=== PATIENT | male | born 1950 | race Caucasian/White ===

== ENCOUNTER 2019-08-31 06:24 | Emergency (ER) | payer MEDICARE, OTHER ==
[2019-11-03] MEDS ORDERED: AMIO200T6 PO (15:46)
== END 2019-08-31 11:34 | disposition home or self-care (01) ==
LOC: EDH 06:24
DX: S00.93XA Contusion of unspecified part of head, initial encounter (principal); I10 Essential (primary) hypertension; I48.91 Unspecified atrial fibrillation; W06.XXXA Fall from bed, initial encounter; Y93.89 Activity, other specified; Y92.89 Other specified places as the place of occurrence of the external cause; Y99.8 Other external cause status
CPT/HCPCS: 70450; 72125

== ENCOUNTER 2019-11-03 02:00 | Inpatient (IN) | payer MEDICARE ==
[~2019-11-03] VITALS: Ht 170.2 cm; Wt 67.5 kg
[2019-11-03] MEDS ORDERED: METOCLOPRAMIDE 10 MG/2 ML VIAL ONE (02:12)
[2019-11-03] MEDS ORDERED: ONDANSETRON HCL 4 MG/2 ML VIAL ONE (02:12)
[2019-11-03] MEDS ORDERED: SODIUM CHLORIDE 0.9% 1000ML 1,000 ML IV ONE (02:13)
[2019-11-03 02:32] LABS: BASOPHILS % (AUTO) 0.3 % (0.0-5.0); HEMATOCRIT 31.5 % (42-54); LYMPHOCYTES % (AUTO) 1.9 % (21.0-51.0); MEAN CORPUSCULAR HEMOGLOBIN 19.2 pg (27.0-33.0); MEAN CORPUSCULAR HGB CONC 32.1 g/dL (32.0-36.0); MONOCYTES % (AUTO) 14.6 % (3.0-13.0); NEUTROPHILS % (AUTO) 82.6 % (40.0-77.0); NUCLEATED RED BLOOD CELLS 0.3 % (0.0-0.19); PLATELET COUNT (AUTO) 443 K/uL (130-400); RED BLOOD CELL COUNT(AUTO) 5.25 MIL/uL (4.50-6.20); RED CELL DISTRIBUTION WIDTH 18.7 % (11.0-15.5); WHITE BLOOD COUNT (AUTO) 22.8 K/uL (4.8-10.8)
[2019-11-03 02:50] LABS: CREATININE 1.4 mg/dL (0.5-1.5); POTASSIUM 4.2 mmol/L (3.5-5.1)
[2019-11-03 02:52] LABS: INR 0.99 (0.85-1.15); PARTIAL THROMBOPLASTIN TIME 40.6 SEC (26.3-35.5); PROTHROMBIN TIME 10.7 SEC (9.6-11.6)
[2019-11-03 02:54] LABS: ALBUMIN 3.4 g/dL (3.5-5.0); BILIRUBIN,TOTAL 0.7 mg/dL (0.2-1.0); TOTAL PROTEIN, SERUM 7.8 g/dL (6.0-8.3)
[2019-11-03 02:58] LABS: BAND NEUTROPHILS % (MANUAL) 9 % (0-2); LYMPHOCYTES % (MANUAL) 4 % (22-44); MAN.DIFF COMMENT-IMPRESSION MANUAL DIFFERENTIAL; MONOCYTES % (MANUAL) 13 % (2-9); PLATELET MORPHOLOGY COMMENT ADEQUATE; SEGMENTED NEUTROPHILS % 74 % (40-70)
[2019-11-03 03:01] LABS: B-TYPE NATRIURETIC PEPTIDE 241 pg/mL (0-100)
[2019-11-03] MEDS ORDERED: IOHEXOL 350 MG/ML 100ML INFUS..BTL IV ONE (04:16)
[2019-11-03] MEDS ORDERED: IOHEXOL-350 75 ML VIAL IV ONE (04:17)
[2019-11-03 05:52] LABS: APPEARANCE,URINE Clear (CLEAR); BILIRUBIN,URINE Negative (NEGATIVE); COLOR,URINE Dark Yellow (YELLOW); GLUCOSE, URINE (UA) Negative (NEGATIVE); KETONES,URINE Negative (NEGATIVE); LEUKOCYTE ESTERASE ,URINE Trace (NEGATIVE); NITRATE,URINE Negative (NEGATIVE); OCCULT BLOOD,URINE Trace (NEGATIVE); PH,URINE 5.5 (5.0-8.0); PROTEIN,URINE POS 1+ mg/dL (NEGATIVE)
[2019-11-03 05:59] LABS: BACTERIA,URINE Rare /HPF (None Seen); MUCUS,URINE Few LPF (None Seen); RBC,URINE 0-1 /HPF (0-1); SQUAMOUS EPITHELIAL CELL,UR Few /HPF (0-2)
[2019-11-03] MEDS ORDERED: ZOSYN 3.375GM+NS 50ML 50 ML IV ONE (06:16)
[2019-11-03] MEDS ORDERED: ACETAMINOPHEN 325 MG TAB PO PRN ×2 (07:15)
[2019-11-03] MEDS ORDERED: SODIUM CHLORIDE 0.9% 1000ML 1,000 ML IV SCH (07:15)
[2019-11-03] MEDS: ENOXAPARIN SODIUM 30 MG/0.3 ML SQ SCH (09:00)
[2019-11-03] MEDS ORDERED: ENOXAPARIN SODIUM 30 MG/0.3 ML SQ ONE (09:51)
[2019-11-03 11:30] VITALS: BP 110/50
--- NOTE | 2019-11-03 13:40 | NUR ---
CM NOTE/IA UNABLE TO MEET IN ROOM WITH PATIENT, NEXT OF KIN CALLED, BERNADETTE RAYA. PER SIBLING, PATIENT IS RESIDENT AT [facility], DEPENDENT WITH ADLS, TOTALLY BLIND, INCONTINENT, WHEELCHAIR BOUND, WPW SYNDROME, PARTIALLY PARALYZED, HAS USE OF WC, AND [facility] IN [place]. PER SIBLING, OK TO RETURN TO [place] IF HE CAN, PENDING MD RECOMMENDATIONS. PER SIBLING, HE HAS INITIATED BENEFITS CLAIM FOR [facility]P WITH [facility], BUT PROCESS PENDING. CM TO FOLLOW UP. Addendum: 11/03/19 at 1745 by ANDRES WHEATLEY RN CM Amended: Links added.
[2019-11-03] MEDS ORDERED: AMIO200T5 PO (15:46)
[2019-11-03] MEDS ORDERED: LORA-705 PO (15:52)
[2019-11-03] MEDS ORDERED: LEVO75TA10 PO (15:52)
[2019-11-03] MEDS ORDERED: DIGO125T71 PO (15:52)
[2019-11-03] MEDS ORDERED: ATOR10 PO (15:52)
[2019-11-03] MEDS ORDERED: APIX5TAB PO (15:52)
[2019-11-03] MEDS ORDERED: OMEP-420 PO (15:57)
[2019-11-03] MEDS ORDERED: TAMS-1 PO (15:57)
[2019-11-03] MEDS ORDERED: ONDA-104 PO (15:57)
[2019-11-03] MEDS ORDERED: METO37.5 PO (15:57)
[2019-11-03] MEDS ORDERED: PHEN200C5 PO (15:57)
[2019-11-03 16:00] VITALS: BP 112/66
[2019-11-03 20:00] VITALS: BP 126/51
[2019-11-04] VITALS (7 sets, daily range): BP systolic 104–121; BP diastolic 43–57
--- NOTE | 2019-11-04 03:41 | NUR ---
STATUS Pt awake,alert,states he's thirsty,denies pain,no nausea or vomitting.Remains NPO.
[2019-11-04 04:28] LABS: BASOPHILS % (AUTO) 0.4 % (0.0-5.0); LYMPHOCYTES % (AUTO) 2.8 % (21.0-51.0); MEAN CORPUSCULAR HEMOGLOBIN 19.4 pg (27.0-33.0); MEAN CORPUSCULAR HGB CONC 32.1 g/dL (32.0-36.0); MEAN CORPUSCULAR VOLUME 60.5 fL (79-99); MONOCYTES % (AUTO) 12.6 % (3.0-13.0); NEUTROPHILS % (AUTO) 83.2 % (40.0-77.0); NUCLEATED RED BLOOD CELLS 0.1 % (0.0-0.19); PLATELET COUNT (AUTO) 426 K/uL (130-400); RED BLOOD CELL COUNT(AUTO) 4.79 MIL/uL (4.50-6.20)
[2019-11-04 04:52] LABS: BAND NEUTROPHILS % (MANUAL) 6 % (0-2); LYMPHOCYTES % (MANUAL) 5 % (22-44); MONOCYTES % (MANUAL) 10 % (2-9); SEGMENTED NEUTROPHILS % 79 % (40-70)
[2019-11-04 04:53] LABS: MAN.DIFF COMMENT-IMPRESSION MANUAL DIFFERENTIAL; PLATELET MORPHOLOGY COMMENT ADEQUATE
[2019-11-04 05:00] LABS: ALBUMIN 2.9 g/dL (3.5-5.0); BILIRUBIN,TOTAL 0.8 mg/dL (0.2-1.0); CREATININE 1.4 mg/dL (0.5-1.5); POTASSIUM 4.2 mmol/L (3.5-5.1); TOTAL PROTEIN, SERUM 7.4 g/dL (6.0-8.3)
[2019-11-04] MEDS ORDERED: COMPOUND IV REFRIGERATED 1 EACH IVSOLN MISC PRN (09:45)
[2019-11-04] MEDS ORDERED: PHARMACY COMMUNICATION MISC SCH (09:45)
[2019-11-04] MEDS: ENOXAPARIN SODIUM 30 MG/0.3 ML SQ SCH (10:25)
[2019-11-04] MEDS: VANCOMYCIN 1.25 GM in SODIUM CHLORIDE 0.9% 250 ML IV SCH (10:25)
[2019-11-04] MEDS: MORPHINE SULFATE 2 MG/ML 1ML SYG IVP PRN ×2 (12:05→17:15)
[2019-11-04] MEDS ORDERED: ONDANSETRON 4 MG TABLET PO PRN (14:45)
[2019-11-04] MEDS: METRONIDAZOLE 500MG/100ML BAG 100 ML IV SCH ×2 (15:45→21:17)
[2019-11-04] MEDS: ONDANSETRON HCL 4 MG/2 ML VIAL IVP PRN (17:15)
[2019-11-04] MEDS ORDERED: ATORVASTATIN CALCIUM 20 MG TABLET ONE (18:32)
[2019-11-04] MEDS ORDERED: TAMSULOSIN HCL 0.4 MG CAP.ER.24H ONE (18:32)
[2019-11-04] MEDS ORDERED: METOPROLOL TARTRATE 25 MG TAB ONE (18:32)
[2019-11-04] MEDS ORDERED: PHENYTOIN SODIUM 100 MG ERCAP PO SCH (21:00)
[2019-11-04] MEDS ORDERED: PHENYTOIN SODIUM 50 MG/ML 2ML VIAL IV SCH (21:00)
[2019-11-04] MEDS: TAMSULOSIN HCL 0.4 MG CAP.ER.24H PO SCH (21:18)
[2019-11-04] MEDS: METOPROLOL TARTRATE 25 MG TAB PO SCH (21:18)
[2019-11-04] MEDS: ATORVASTATIN CALCIUM 20 MG TABLET PO SCH (21:19)
[2019-11-04] MEDS ORDERED: COMPOUND IV MISC 1 EACH IVSOLN MISC PRN (21:45)
[2019-11-04] MEDS: PHENYTOIN SODIUM 50MG/ML 2ML 200 MG in SODIUM CHLORIDE 0.9% 50 ML IV SCH (23:16)
--- NOTE | 2019-11-05 00:20 | NUR ---
CONFUSED Pt appears more confused and disorieted tonight.He's screaming and taking off his gown and heart monitor.He denies pain.Reoriented per staff.Bilateral hand mittens in place to prevent from pulling out lines. Addendum: 11/05/19 at 0248 by LETTY ASHLEY RN RN *Rt hand mittens only.
--- NOTE | 2019-11-05 02:01 | NUR ---
IV Pt had pulled out his iv,cath tip intact.Applied pressure to site.New iv started to rt arm x 1 attempt. Addendum: 11/05/19 at 0202 by LETTY ASHLEY RN RN Amended: Links added.
--- NOTE | 2019-11-05 02:47 | NUR ---
AWAKE Pt remains agitated,fidgety,does not keep mittens on.He denies pain.
[2019-11-05] MEDS: MORPHINE SULFATE 2 MG/ML 1ML SYG IVP PRN ×3 (03:45→22:48)
[2019-11-05 03:46] VITALS: BP 115/58
--- NOTE | 2019-11-05 03:55 | NUR ---
PAIN P t c/o abdominal pain,medicated with Morphine Iv.
[2019-11-05] MEDS: METRONIDAZOLE 500MG/100ML BAG 100 ML IV SCH ×3 (04:53→22:21)
[2019-11-05] MEDS: LEVOTHYROXINE 75 MCG TABLET PO SCH (06:07)
[2019-11-05 08:00] VITALS: BP 119/56
[2019-11-05] MEDS: TAMSULOSIN HCL 0.4 MG CAP.ER.24H PO SCH ×2 (09:54→20:39)
[2019-11-05] MEDS: METOPROLOL TARTRATE 25 MG TAB PO SCH ×2 (09:55→20:39)
[2019-11-05] MEDS: LORATADINE 10 MG TABLET PO SCH (09:55)
[2019-11-05] MEDS: PANTOPRAZOLE SODIUM 40 MG TABLET.DR PO SCH (09:56)
[2019-11-05] MEDS: AMIODARONE HCL 200 MG TABLET PO SCH (09:58)
[2019-11-05] MEDS: VANCOMYCIN 1.25 GM in SODIUM CHLORIDE 0.9% 250 ML IV SCH (10:00)
[2019-11-05 10:06] LABS: HEMATOCRIT 26.1 % (42-54); MEAN CORPUSCULAR HEMOGLOBIN 19.2 pg (27.0-33.0); MEAN CORPUSCULAR HGB CONC 31.8 g/dL (32.0-36.0); MEAN CORPUSCULAR VOLUME 60.4 fL (79-99); RED BLOOD CELL COUNT(AUTO) 4.32 MIL/uL (4.50-6.20); RED CELL DISTRIBUTION WIDTH 17.7 % (11.0-15.5); WHITE BLOOD COUNT (AUTO) 20.9 K/uL (4.8-10.8)
[2019-11-05 10:33] LABS: INR 1.04 (0.85-1.15); PROTHROMBIN TIME 11.2 SEC (9.6-11.6)
[2019-11-05 10:39] LABS: ALBUMIN 2.5 g/dL (3.5-5.0); BILIRUBIN,TOTAL 0.5 mg/dL (0.2-1.0); CREATININE 1.5 mg/dL (0.5-1.5); POTASSIUM 3.8 mmol/L (3.5-5.1); TOTAL PROTEIN, SERUM 6.5 g/dL (6.0-8.3)
--- NOTE | 2019-11-05 11:40 | NUR ---
RD NOTIFICATION Pt admitted with acute cholecystitis. Clear Liquid diet order x 2 days, pending lap piotr procedure. Pt with poor PO intake. Mild to moderate fat/muscle loss. LBM 11/02/19. Recommend 60mL ProMod BID Recommend Ensure Clear QD Recommend Advance diet as tolerated to Heart Healthy diet order post procedure RD to continue to monitor. Please notify RD as additional nutrition concerns arise. Thank you. Addendum: 11/05/19 at [address] Amended: Links added.
[2019-11-05] MEDS ORDERED: ZOSYN 3.375GM+NS 50ML 50 ML IV ONE (11:53)
[2019-11-05 12:00] VITALS: BP 120/60
[2019-11-05] MEDS: ZOSYN 3.375GM+NS 50ML 50 ML IV SCH ×2 (12:00→20:40)
[2019-11-05] MEDS: ONDANSETRON HCL 4 MG/2 ML VIAL IVP PRN (14:14)
[2019-11-05] MEDS: ENOXAPARIN SODIUM 30 MG/0.3 ML SQ SCH (14:14)
[2019-11-05 16:00] VITALS: BP 121/62
[2019-11-05] MEDS: DIGOXIN 125 MCG TABLET PO SCH (17:02)
[2019-11-05 20:04] VITALS: BP 122/49
[2019-11-05] MEDS: PHENYTOIN SODIUM 50MG/ML 2ML 200 MG in SODIUM CHLORIDE 0.9% 50 ML IV SCH (20:36)
[2019-11-05] MEDS: ATORVASTATIN CALCIUM 20 MG TABLET PO SCH (20:39)
[2019-11-06] VITALS (26 sets, daily range): BP systolic 103–142; BP diastolic 45–75
[2019-11-06] MEDS: LEVOTHYROXINE 75 MCG TABLET PO SCH (04:40)
[2019-11-06] MEDS: ZOSYN 3.375GM+NS 50ML 50 ML IV SCH ×3 (04:54→19:50)
[2019-11-06] MEDS: METRONIDAZOLE 500MG/100ML BAG 100 ML IV SCH ×3 (06:07→22:47)
[2019-11-06] MEDS: METOPROLOL TARTRATE 25 MG TAB PO SCH ×2 (08:32→20:14)
[2019-11-06] MEDS: LORATADINE 10 MG TABLET PO SCH (08:33)
[2019-11-06] MEDS: TAMSULOSIN HCL 0.4 MG CAP.ER.24H PO SCH ×2 (08:33→20:15)
[2019-11-06] MEDS: ENOXAPARIN SODIUM 30 MG/0.3 ML SQ SCH (08:34)
[2019-11-06] MEDS: PANTOPRAZOLE SODIUM 40 MG TABLET.DR PO SCH (08:34)
[2019-11-06] MEDS: AMIODARONE HCL 200 MG TABLET PO SCH (08:36)
[2019-11-06] MEDS: VANCOMYCIN 1.25 GM in SODIUM CHLORIDE 0.9% 250 ML IV SCH (09:28)
--- NOTE | 2019-11-06 13:54 | NUR ---
TO OR PATIENT HAS BEEN TRANSFERRED TO OR HOLDING AREA. BROTHER (POA) HAS BEEN NOTIFIED. PATIENT IS AWAKE AND IN STABLE CONDITION.
[2019-11-06] MEDS ORDERED: BUPIVACAINE/PF 0.5% 30ML VIAL ONE (14:18)
[2019-11-06] MEDS ORDERED: LIDOCAINE PF 2% 5ML ABBOJECT ONE (14:30)
[2019-11-06] MEDS ORDERED: DEXAMETHASONE SOD PHOSPHATE 10MG/ML 1ML VIAL ONE (14:30)
[2019-11-06] MEDS ORDERED: MIDAZOLAM HCL 1 MG/ML 2ML VIAL ONE (14:30)
[2019-11-06] MEDS ORDERED: SUCCINYLCHOLINE 200MG/10ML SYR ONE (14:30)
[2019-11-06] MEDS ORDERED: GLYCOPYRROLATE 1 MG/5 ML SYRINGE ONE (14:31)
[2019-11-06] MEDS ORDERED: ROCURONIUM 10MG/1ML SYR 10 MG/ML ML ONE (14:31)
[2019-11-06] MEDS ORDERED: PROPOFOL 10 MG/ML 20ML VIAL IV ONE (14:31)
[2019-11-06] MEDS ORDERED: ONDANSETRON HCL 4 MG/2 ML VIAL ONE (14:31)
[2019-11-06] MEDS ORDERED: FENTANYL CITRATE PF 50 MCG/1 ML 2ML VIAL ONE (14:31)
[2019-11-06] MEDS ORDERED: NEOSTIGMINE 5MG/5ML SYR IV ONE (14:31)
[2019-11-06] MEDS ORDERED: EPHEDRINE SULFATE 50 MG/ML AMPULE ONE (14:45)
[2019-11-06] MEDS ORDERED: SUGAMMADEX SODIUM 200 MG/2 ML VIAL IV ONE (16:31)
[2019-11-06] MEDS ORDERED: KETOROLAC TROMETHAMINE 30MG/ML ONE (16:50)
--- NOTE | 2019-11-06 17:05 | NUR ---
PACU REPORT RECEIVED REPORT PATIENT S/P OPEN LARISA, DRESSING DRY AND INTACT VS BP 125/54, O2SATS 100% ON 2 LITERS NC, GIVEN TORADOL FOR PAIN, IV IN RIGHT AND LEFT ARM INTACT WILL CONTINUE TO MONITOR PATIENT FOR 25 MIN BEFORE TRANSPORTING TO THE FLOOR.
--- NOTE | 2019-11-06 17:45 | NUR ---
POST SURGERY PATIENT RECEIVED FROM PACU VIA HOSPITAL BED. DENIES PAIN AT THIS TIME. HE IS ON POST OP VITAL SIGNS. DRESSING TO THE RIGHT SIDE OF THE ABDOMEN IS DRY AND INTACT. HE HAS BEEN REORIENTED TO ROOM AND USE OF CALL LIGHT. BED IS IN LOWEST POSITION AND LOCKED. WILL CONTINUE TO MONITOR.
[2019-11-06] MEDS: DIGOXIN 125 MCG TABLET PO SCH (18:31)
[2019-11-06] MEDS ORDERED: KETOROLAC TROMETHAMINE 15MG/ML IV PRN (19:45)
[2019-11-06] MEDS ORDERED: ONDANSETRON HCL 4 MG/2 ML VIAL IVP PRN (19:45)
--- NOTE | 2019-11-06 19:45 | NUR ---
PM Assessment Received pt noted still drowsy but easily awaken, s/p open cholecystectomy, routine assessment done, plan of care discuss, denies discomfort.Pt made aware only on clear liquid diet for now, requested fro ice water. Dressing to the navel area change aseptically as noted soaked with bloody drainage,staple intact, site cleansed with NS, cover with 2x2 gauze, then sealed with opsite.
[2019-11-06] MEDS: ATORVASTATIN CALCIUM 20 MG TABLET PO SCH (20:14)
[2019-11-06] MEDS: PHENYTOIN SODIUM 50MG/ML 2ML 200 MG in SODIUM CHLORIDE 0.9% 50 ML IV SCH (22:06)
[2019-11-07] VITALS (7 sets, daily range): BP systolic 97–136; BP diastolic 40–96
[2019-11-07] MEDS: ZOSYN 3.375GM+NS 50ML 50 ML IV SCH ×3 (05:11→19:52)
[2019-11-07] MEDS: METRONIDAZOLE 500MG/100ML BAG 100 ML IV SCH ×3 (05:11→21:07)
[2019-11-07 06:20] LABS: BASOPHILS % (AUTO) 0.2 % (0.0-5.0); EOSINOPHILS % (AUTO) 0.1 % (0.0-8.0); LYMPHOCYTES % (AUTO) 2.7 % (21.0-51.0); MEAN CORPUSCULAR HEMOGLOBIN 19.4 pg (27.0-33.0); MEAN CORPUSCULAR HGB CONC 32.2 g/dL (32.0-36.0); MEAN CORPUSCULAR VOLUME 60.1 fL (79-99); MONOCYTES % (AUTO) 10.1 % (3.0-13.0); NEUTROPHILS % (AUTO) 86.4 % (40.0-77.0); PLATELET COUNT (AUTO) 362 K/uL (130-400); RED BLOOD CELL COUNT(AUTO) 3.46 MIL/uL (4.50-6.20); RED CELL DISTRIBUTION WIDTH 17.2 % (11.0-15.5); WHITE BLOOD COUNT (AUTO) 15.6 K/uL (4.8-10.8)
[2019-11-07 06:38] LABS: HEMATOCRIT 20.8 % (42-54)
[2019-11-07 06:40] LABS: ALBUMIN 2.1 g/dL (3.5-5.0); BILIRUBIN,TOTAL 0.3 mg/dL (0.2-1.0); CREATININE 1.5 mg/dL (0.5-1.5); TOTAL PROTEIN, SERUM 5.8 g/dL (6.0-8.3)
--- NOTE | 2019-11-07 06:51 | NUR ---
RE: H/H . DR. BERENICE VANESSA PENDING CALL BACK RE: H7H ., PT ASYMPTOMATIC, NO ACTIVE BLEEDING NOTED.
[2019-11-07] MEDS: LEVOTHYROXINE 75 MCG TABLET PO SCH (06:54)
[2019-11-07] MEDS: TAMSULOSIN HCL 0.4 MG CAP.ER.24H PO SCH ×2 (09:05→19:53)
[2019-11-07] MEDS: LORATADINE 10 MG TABLET PO SCH (09:05)
[2019-11-07] MEDS: PANTOPRAZOLE SODIUM 40 MG TABLET.DR PO SCH (09:05)
[2019-11-07] MEDS: METOPROLOL TARTRATE 25 MG TAB PO SCH ×2 (09:06→19:53)
[2019-11-07] MEDS: AMIODARONE HCL 200 MG TABLET PO SCH (09:06)
[2019-11-07] MEDS: ENOXAPARIN SODIUM 30 MG/0.3 ML SQ SCH (09:07)
--- NOTE | 2019-11-07 09:20 | NUR ---
MARIANA: Received call this am from [facility]. She mentions that they are accepting pt for admission to their facility when he is medically cleared for transfer. MOT/[facility] PCS flagged in chart. CM to continue to follow.
[2019-11-07] MEDS: VANCOMYCIN 1.25 GM in SODIUM CHLORIDE 0.9% 250 ML IV SCH (11:36)
[2019-11-07] MEDS: MORPHINE SULFATE 4 MG/1ML SYG IVP PRN (13:16)
[2019-11-07] MEDS ORDERED: SODIUM CHLORIDE 0.9% 250 ML IV ONE (14:35)
--- NOTE | 2019-11-07 14:53 | NUR ---
RBC'S 1 UNIT OF BLOOD STARTED,HBG 6.7, HCT 20.8 NO ALLERGIC REACTION FOR THE 1ST 15 MN, WILL CONTINUE TO MONITOR.
[2019-11-07] MEDS: DIGOXIN 125 MCG TABLET PO SCH (16:00)
--- NOTE | 2019-11-07 17:10 | NUR ---
RBC'S 1 UNIT OF RBC'S GIVEN, VS STABLE NO ALLERGIC REACTION, WILL CONTINUE TO MONITOR
[2019-11-07] MEDS: APIXABAN 5 MG TABLET PO SCH (19:53)
[2019-11-07] MEDS: PHENYTOIN SODIUM 50MG/ML 2ML 200 MG in SODIUM CHLORIDE 0.9% 50 ML IV SCH (19:53)
[2019-11-07] MEDS: ATORVASTATIN CALCIUM 20 MG TABLET PO SCH (19:53)
[2019-11-07] MEDS: ACETAMINOPHEN-CODEINE 300/30MG TAB PO PRN ×2 (19:54→23:52)
--- NOTE | 2019-11-07 19:55 | NUR ---
MEDS SHIFT ASSESSMENT DONE, PLEASE REFER TO CHART. DUE MEDS ADMINISTERED, TOLERATED WELL. KEPT RESTED AND COMFORTABLE IN BED WITH HOB ELEVATED. WILL MONITOR PT. Addendum: 11/07/19 at 2224 by ELISEO PITTMAN RN RN Amended: Links added.
--- NOTE | 2019-11-08 01:00 | NUR ---
CALLS PT HAD BEEN FREQUENTLY CALLING AND REPEATING HIS QUESTIONS ABOUT TIME, SCD'S ON LEG AND CLAIMS OF BRACES ON HIS KNEES. TRIED TO RE-ORIENT PT EACH TIME. ENCOURAGED TO REST AND SLEEP. WILL MONITOR CLOSELY.
[2019-11-08] MEDS: ZOSYN 3.375GM+NS 50ML 50 ML IV SCH ×3 (03:31→19:39)
[2019-11-08 03:50] VITALS: BP 107/43
[2019-11-08 05:06] LABS: BASOPHILS % (AUTO) 0.6 % (0.0-5.0); EOSINOPHILS % (AUTO) 2.9 % (0.0-8.0); HEMATOCRIT 23.4 % (42-54); MEAN CORPUSCULAR HEMOGLOBIN 20.1 pg (27.0-33.0); MEAN CORPUSCULAR HGB CONC 32.1 g/dL (32.0-36.0); MEAN CORPUSCULAR VOLUME 62.6 fL (79-99); MONOCYTES % (AUTO) 10.8 % (3.0-13.0); NEUTROPHILS % (AUTO) 78.1 % (40.0-77.0); PLATELET COUNT (AUTO) 355 K/uL (130-400); RED BLOOD CELL COUNT(AUTO) 3.74 MIL/uL (4.50-6.20); RED CELL DISTRIBUTION WIDTH 21.2 % (11.0-15.5); WHITE BLOOD COUNT (AUTO) 12.7 K/uL (4.8-10.8)
[2019-11-08] MEDS: METRONIDAZOLE 500MG/100ML BAG 100 ML IV SCH ×3 (05:12→20:55)
[2019-11-08] MEDS: LEVOTHYROXINE 75 MCG TABLET PO SCH (05:13)
[2019-11-08 05:17] LABS: CREATININE 1.4 mg/dL (0.5-1.5); POTASSIUM 3.6 mmol/L (3.5-5.1)
[2019-11-08] MEDS: ACETAMINOPHEN-CODEINE 300/30MG TAB PO PRN ×3 (05:24→19:41)
--- NOTE | 2019-11-08 05:24 | NUR ---
PAIN PT CLAIMS OF POST OP PAINS. DUE MEDS ADMINISTERED, TYLENOL #3 1 TAB PO GIVEN FOR PAIN. RE-POSITION COMFORTABLY IN BED. WILL RE-ASSESS PT.
[2019-11-08 08:09] VITALS: BP 132/63
[2019-11-08] MEDS: PANTOPRAZOLE SODIUM 40 MG TABLET.DR PO SCH (08:35)
[2019-11-08] MEDS: AMIODARONE HCL 200 MG TABLET PO SCH (08:35)
[2019-11-08] MEDS: LORATADINE 10 MG TABLET PO SCH (08:35)
[2019-11-08] MEDS: TAMSULOSIN HCL 0.4 MG CAP.ER.24H PO SCH ×2 (08:35→19:41)
[2019-11-08] MEDS: APIXABAN 5 MG TABLET PO SCH (08:36)
[2019-11-08] MEDS: METOPROLOL TARTRATE 25 MG TAB PO SCH ×2 (08:36→19:40)
[2019-11-08] MEDS: VANCOMYCIN 1.25 GM in SODIUM CHLORIDE 0.9% 250 ML IV SCH (10:42)
[2019-11-08 11:45] VITALS: BP 101/46
[2019-11-08] MEDS: DIGOXIN 125 MCG TABLET PO SCH (16:00)
[2019-11-08 16:55] VITALS: BP 124/54
--- NOTE | 2019-11-08 19:10 | NUR ---
SEWER LINE REPAIRER MILAN, TORI FOR HOSPITALIST, MAKING ROUNDS ON THE FLOOR. REFERRED PT'S LOW POTASSIUM. NEW MED ORDER GIVEN, PLEASE REFER TO CPOE. WILL MEDICATE PT.
[2019-11-08] MEDS ORDERED: LIDOCAINE HCL-MPF 1% 2ML VIAL IV PRN (19:15)
[2019-11-08] MEDS ORDERED: POTASSIUM CHLORIDE 20 MEQ ERTAB PO PRN (19:15)
[2019-11-08] MEDS ORDERED: POTASSIUM CHLORIDE 20MEQ/100ML 100 ML IV PRN (19:15)
[2019-11-08] MEDS: POTASSIUM CHLORIDE 10% ELIXIR 20 MEQ/15 ML UDCUP PO PRN ×2 (19:40→21:51)
[2019-11-08] MEDS: PHENYTOIN SODIUM 50MG/ML 2ML 200 MG in SODIUM CHLORIDE 0.9% 50 ML IV SCH (19:40)
[2019-11-08] MEDS: ATORVASTATIN CALCIUM 20 MG TABLET PO SCH (19:40)
--- NOTE | 2019-11-08 19:45 | NUR ---
MEDS SHIFT ASSESSMENT DONE, PLEASE REFER TO CHART. PT CLAIMS OF POST OP PAINS. DUE MEDS ADMINISTERED, TYLENOL #3 PO GIVEN FOR PAIN, TOLERATED WELL. KEPT COMFORTABLE AND RESTED. CALL LIGHT WITHIN REACH. WILL MONITOR PT. Addendum: 11/09/19 at 0006 by ELISEO PITTMAN RN RN Amended: Links added.
[2019-11-08 20:00] VITALS: BP 106/49
[2019-11-08] MEDS: DOCUSATE SODIUM 100 MG CAP PO SCH (20:55)
[2019-11-09] VITALS (7 sets, daily range): BP systolic 97–130; BP diastolic 44–55
[2019-11-09] MEDS: ACETAMINOPHEN-CODEINE 300/30MG TAB PO PRN ×2 (00:12→05:34)
--- NOTE | 2019-11-09 00:12 | NUR ---
PAIN PT IS CONFUSED AND IS SHOUTING. PT MOANS AND CLAIMS OF POST OP PAINS. MEDICATED WITH TYLENOL #3 PO. TRIED TO RE-ORIENT PT AND ENCOURAGED TO SLEEP. WILL RE-ASSESS PT. Addendum: 11/09/19 at 0123 by ELISEO PITTMAN RN RN Amended: Links added.
--- NOTE | 2019-11-09 02:00 | NUR ---
ROUNDS PT SLEPT AT INTERVALS AND WHEN HE WAKES UP, HE SHOUTS HE GETS DISORIENTED. TRIED TO RE-ORIENT PT EACH TIME.
[2019-11-09] MEDS: ZOSYN 3.375GM+NS 50ML 50 ML IV SCH ×3 (03:52→21:13)
[2019-11-09] MEDS: METRONIDAZOLE 500MG/100ML BAG 100 ML IV SCH ×3 (05:11→21:19)
[2019-11-09] MEDS: LEVOTHYROXINE 75 MCG TABLET PO SCH (05:11)
[2019-11-09 07:41] LABS: BASOPHILS % (AUTO) 0.4 % (0.0-5.0); EOSINOPHILS % (AUTO) 1.6 % (0.0-8.0); HEMATOCRIT 27.4 % (42-54); LYMPHOCYTES % (AUTO) 2.6 % (21.0-51.0); MEAN CORPUSCULAR HEMOGLOBIN 20.7 pg (27.0-33.0); MEAN CORPUSCULAR HGB CONC 32.8 g/dL (32.0-36.0); MONOCYTES % (AUTO) 8.7 % (3.0-13.0); NEUTROPHILS % (AUTO) 85.8 % (40.0-77.0); NUCLEATED RED BLOOD CELLS 0.1 % (0.0-0.19); PLATELET COUNT (AUTO) 483 K/uL (130-400); RED BLOOD CELL COUNT(AUTO) 4.35 MIL/uL (4.50-6.20); RED CELL DISTRIBUTION WIDTH 22.1 % (11.0-15.5); WHITE BLOOD COUNT (AUTO) 22.1 K/uL (4.8-10.8)
[2019-11-09] MEDS: LORATADINE 10 MG TABLET PO SCH (10:07)
[2019-11-09] MEDS: METOPROLOL TARTRATE 25 MG TAB PO SCH ×2 (10:07→21:15)
[2019-11-09] MEDS: TAMSULOSIN HCL 0.4 MG CAP.ER.24H PO SCH ×2 (10:07→21:16)
[2019-11-09] MEDS: PANTOPRAZOLE SODIUM 40 MG TABLET.DR PO SCH (10:07)
[2019-11-09] MEDS: AMIODARONE HCL 200 MG TABLET PO SCH (10:07)
[2019-11-09] MEDS: DIGOXIN 125 MCG TABLET PO SCH (10:13)
[2019-11-09] MEDS: DOCUSATE SODIUM 100 MG CAP PO SCH ×3 (10:13→21:16)
[2019-11-09] MEDS ORDERED: SODIUM CHLORIDE 0.9% 250 ML IV ONE (14:18)
[2019-11-09] MEDS: LACTULOSE 20 GM/30 ML UDCUP PO SCH (21:15)
[2019-11-09] MEDS: APIXABAN 5 MG TABLET PO SCH (21:16)
[2019-11-09] MEDS: ATORVASTATIN CALCIUM 20 MG TABLET PO SCH (21:16)
[2019-11-09] MEDS: MORPHINE SULFATE 4 MG/1ML SYG IVP PRN (21:28)
[2019-11-09] MEDS: PHENYTOIN SODIUM 50MG/ML 2ML 200 MG in SODIUM CHLORIDE 0.9% 50 ML IV SCH (21:40)
[2019-11-10 03:41] VITALS: BP 130/60
[2019-11-10] MEDS: ZOSYN 3.375GM+NS 50ML 50 ML IV SCH ×3 (03:57→19:36)
[2019-11-10 04:43] LABS: BASOPHILS % (AUTO) 0.5 % (0.0-5.0); EOSINOPHILS % (AUTO) 1.4 % (0.0-8.0); HEMATOCRIT 28.8 % (42-54); LYMPHOCYTES % (AUTO) 3.7 % (21.0-51.0); MEAN CORPUSCULAR HEMOGLOBIN 20.3 pg (27.0-33.0); MEAN CORPUSCULAR HGB CONC 32.3 g/dL (32.0-36.0); MEAN CORPUSCULAR VOLUME 62.7 fL (79-99); MONOCYTES % (AUTO) 11.1 % (3.0-13.0); NEUTROPHILS % (AUTO) 82.4 % (40.0-77.0); NUCLEATED RED BLOOD CELLS 0.1 % (0.0-0.19); PLATELET COUNT (AUTO) 578 K/uL (130-400); RED BLOOD CELL COUNT(AUTO) 4.59 MIL/uL (4.50-6.20); RED CELL DISTRIBUTION WIDTH 22.6 % (11.0-15.5); WHITE BLOOD COUNT (AUTO) 22.2 K/uL (4.8-10.8)
[2019-11-10] MEDS: METRONIDAZOLE 500MG/100ML BAG 100 ML IV SCH ×2 (05:53→14:21)
[2019-11-10] MEDS: LEVOTHYROXINE 75 MCG TABLET PO SCH (05:53)
[2019-11-10] MEDS: MORPHINE SULFATE 4 MG/1ML SYG IVP PRN ×2 (05:55→16:34)
[2019-11-10 08:00] VITALS: BP 122/55
--- NOTE | 2019-11-10 08:00 | NUR ---
AM SHIFT ASSESSMENT.
--- NOTE | 2019-11-10 08:15 | NUR ---
PORTABLE CHEST X-RAY DONE.
[2019-11-10] MEDS ORDERED: ENOXAPARIN SODIUM 40 MG/0.4 ML SYRINGE SQ SCH (09:00)
--- NOTE | 2019-11-10 09:00 | NUR ---
SURG INCISION TO RT. UPPER QUAD CLEAN AND CLOSED. RUTH.
[2019-11-10] MEDS: METOPROLOL TARTRATE 25 MG TAB PO SCH ×2 (09:45→19:37)
[2019-11-10] MEDS: AMIODARONE HCL 200 MG TABLET PO SCH (09:45)
[2019-11-10] MEDS: PANTOPRAZOLE SODIUM 40 MG TABLET.DR PO SCH (09:46)
[2019-11-10] MEDS: LACTULOSE 20 GM/30 ML UDCUP PO SCH ×2 (09:46→19:37)
[2019-11-10] MEDS: APIXABAN 5 MG TABLET PO SCH ×2 (09:46→19:37)
[2019-11-10] MEDS: DOCUSATE SODIUM 100 MG CAP PO SCH ×3 (09:46→19:36)
[2019-11-10] MEDS: TAMSULOSIN HCL 0.4 MG CAP.ER.24H PO SCH ×2 (09:47→19:37)
[2019-11-10] MEDS: LORATADINE 10 MG TABLET PO SCH (09:47)
--- NOTE | 2019-11-10 10:35 | NUR ---
KUB COMPLETE, IMAGING SHOWS A LOT OF AIR.
[2019-11-10 11:00] VITALS: BP 116/57
[2019-11-10 16:00] VITALS: BP 123/66
--- NOTE | 2019-11-10 16:13 | NUR ---
REPORT GIVEN TO NURSE RUFINA. EMS NOTIFIED OF TRANSFER.
[2019-11-10] MEDS: DIGOXIN 125 MCG TABLET PO SCH (16:33)
--- NOTE | 2019-11-10 17:18 | NUR ---
BROTHER NOTIFIED OF TRANSFER.
--- NOTE | 2019-11-10 17:19 | NUR ---
NO ONE AVAILABLE TO SIGN SIG. PAPER SEND TO [facility]
--- NOTE | 2019-11-10 19:00 | NUR ---
DISCHARGE PAPER WORK COMPLETE, WAITING ON AMBULANCE FOR TRANSFER
[2019-11-10] MEDS: PHENYTOIN SODIUM 50MG/ML 2ML 200 MG in SODIUM CHLORIDE 0.9% 50 ML IV SCH (19:36)
--- NOTE | 2019-11-10 19:36 | NUR ---
MEDS SHIFT ASSESSMENT DONE, PLEASE REFER TO CHART. DUE MEDS ADMINISTERED, PT TOLERATED WELL. KEPT RESTED AND COMFORTABLE. CALL LIGHT WITHIN REACH. WILL MONITOR PT. Addendum: 11/10/19 at 2149 by ELISEO PITTMAN RN RN Amended: Links added.
[2019-11-10] MEDS: ATORVASTATIN CALCIUM 20 MG TABLET PO SCH (19:37)
[2019-11-10 19:41] VITALS: BP 138/66
--- NOTE | 2019-11-10 21:05 | NUR ---
PIV PT'S PIV IS LEAKING, DISCONTINUED SITE WITH CATHETER INTACT. RE-INSERTED PIV G20 ON LEFT HAND, TOLERATED WELL. CONTINUED IV ZOSYN. Addendum: 11/10/19 at 2151 by ELISEO PITTMAN RN RN Amended: Links added.
--- NOTE | 2019-11-10 21:15 | NUR ---
D/C EMS IN TO TRANSPORT PT TO [facility]. SHERRI SCHMITT SENT WITH PT TO [facility]. D/C TO FOR MORE TO USP CARE.
== END 2019-11-10 21:07 | DRG 853 ==
LOC: EDH 02:00 → EDHIP 06:32 → 3CH 11:01
PROVIDERS: ADMIT Hospitalist; ATTEND Hospitalist
PROC: 0FT40ZZ Resection of Gallbladder, Open Approach (ICD-10-PCS; principal; 2019-11-06 14:40)
PROC: 0FJ44ZZ Inspection of Gallbladder, Percutaneous Endoscopic Approach (ICD-10-PCS; 2019-11-06 14:40)
PROC: 30233N1 Transfusion of Nonautologous Red Blood Cells into Peripheral Vein, Percutaneous Approach (ICD-10-PCS; 2019-11-07)
DX: A41.9 Sepsis, unspecified organism (principal); R53.2 Functional quadriplegia; K81.0 Acute cholecystitis; D62 Acute posthemorrhagic anemia; E87.1 Hypo-osmolality and hyponatremia; I69.354 Hemiplegia and hemiparesis following cerebral infarction affecting left non-dominant side; K52.9 Noninfective gastroenteritis and colitis, unspecified; I50.9 Heart failure, unspecified; I11.0 Hypertensive heart disease with heart failure; D63.8 Anemia in other chronic diseases classified elsewhere; E03.9 Hypothyroidism, unspecified; F03.90 Unspecified dementia, unspecified severity, without behavioral disturbance, psychotic disturbance, mood disturbance, and anxiety; G40.909 Epilepsy, unspecified, not intractable, without status epilepticus; H54.8 Legal blindness, as defined in USA; I25.10 Atherosclerotic heart disease of native coronary artery without angina pectoris; I48.91 Unspecified atrial fibrillation; N40.0 Benign prostatic hyperplasia without lower urinary tract symptoms; E78.5 Hyperlipidemia, unspecified; Z20.828 Contact with and (suspected) exposure to other viral communicable diseases; Z53.31 Laparoscopic surgical procedure converted to open procedure; Z79.01 Long term (current) use of anticoagulants; Z90.81 Acquired absence of spleen; Z95.1 Presence of aortocoronary bypass graft
CPT/HCPCS: 36415; 36430; 71045; 71275; 74018; 74177; 78226; 80048; 80053; 80185; 80202; 81001; 82550; 83605; 83690; 83880; 84132; 84484; 85025; 85027; 85610; 85730; 86850; 86900; 86901; 86923; 87040; 87426; 93005; 93306; A9537; G0378; J0330; J1100; J1165; J1650; J1885; J2001; J2250; J2270; J2405; J2543; J2704; J2710; J2765; J3010; J3370; J3490; J7030; J7050; J7120; P9016; Q9967; U0003